=== PATIENT | male | born 1985 | race Caucasian/White ===

== ENCOUNTER 2018-12-21 02:49 | Emergency (ER) | payer SELFPAY ==
[~2018-12-21] VITALS: Ht 152.4 cm; Wt 80.7 kg
[2018-12-21 02:58] VITALS: Ht 152.4 cm; Wt 80.7 kg
[2018-12-21 05:17] VITALS: BP 138/88
== END 2018-12-21 05:17 | disposition home or self-care (01) ==
LOC: ED 02:49
DX: L53.9 Erythematous condition, unspecified (principal)